=== PATIENT | male | born 1960 | race Caucasian/White ===

== ENCOUNTER 2016-11-05 08:00 | Emergency (ER) | payer OTHER ==
[2016-11-05 08:02] VITALS: BP 179/105; PULSE 75; RESP 15; TEMP 98.2; O2SAT 99
[2016-11-05 08:32] LABS: BLOOD, URINE NEG (NEG); GLUCOSE,URINE NEG (NEG); KETONE, URINE NEG (NEG); NITRITE,URINE NEG (NEG); PH, URINE 6.5 (5.0-8.5); URINE COLOR YELLOW (YELLW/STRAW)
[2016-11-05 08:52] LABS: COMMENT (UR) CULT NOT INDICATED; CULTURE IF INDICATED CULT NOT INDICATED; SQUAMOUS EPITHELIAL CELL URINE 0-5 /hpf (0-5)
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
[2016-11-05 11:23] VITALS: BP 162/94; PULSE 81; RESP 18; TEMP 97.7; O2SAT 97
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
--- NOTE | 2016-11-05 12:51 | PD ---
Data Data Last Documented VS Vital Signs Date Time Temp Pulse Resp B/P Pulse Ox O2 Delivery O2 Flow Rate FiO2 11/05/16 11:23 97.7 81 18 162/94 97 Room Air Orders Urinalysis - C+S If Indicated (11/05/16 08:05) Us Testicles W Doppler (11/05/16 ) Labs Laboratory Tests Test 11/05/16 08:12 Urine Color YELLOW Urine Turbidity CLEAR Urine pH 6.[address] 1.013 Urine Protein NEG mg/dL Urine Glucose (UA) NEG mg/dL Urine Ketones NEG mg/dL Urine Occult Blood NEG Urine Nitrite NEG Urine Bilirubin NEG Urine Urobilinogen LESS THAN 2.0 MG/DL Urine Leukocyte Esterase NEG Urine Squamous Epithelial 0-5 /hpf Cells Microscopic Urinalysis Comment CULT NOT INDICATED MDM Supervised Visit with [facility]: No Diagnosis Primary Impression: Hydrocele Qualified Code: N43.3 - Hydrocele, unspecified hydrocele type Patient Instructions: General Instructions Departure Forms: Tests/Procedures Scripts No Active Prescriptions or Reported Meds Disposition: 07 AGAINST MEDICAL ADVICE Condition: Stable Nina Hansen MD Nov 05, 2016 12:51
== END 2016-11-05 12:53 | disposition left against medical advice (07) ==
LOC: NEPD 08:00
DX: N43.3 Hydrocele, unspecified (principal); F17.210 Nicotine dependence, cigarettes, uncomplicated; Z53.21 Procedure and treatment not carried out due to patient leaving prior to being seen by health care provider
CPT/HCPCS: 76870; 81001; 93975; 99284